=== PATIENT | male | born 1960 | race Caucasian/White ===

== ENCOUNTER 2020-07-30 12:00 | Outpatient (REF) | payer SELFPAY ==
[2020-07-30 13:04] LABS: Cholesterol 232 mg/dL
[2020-07-30 13:24] LABS: SARS COV2 IgG Negative (Negative)
== END 2020-07-30 12:01 | disposition home or self-care (01) ==
LOC: HO.LNC 12:00
PROVIDERS: Visit Provider Pathology Anatomic Pathology & Clinical Pathology
DX: Z20.828 Contact with and (suspected) exposure to other viral communicable diseases (principal)
CPT/HCPCS: 82465; 86769

== ENCOUNTER 2021-08-21 07:31 | Day surgery (SDC) | payer BC, SELFPAY ==
[2021-08-21 07:45] VITALS: BMI 28.1
[2021-08-21 08:03] VITALS: BP 146/94; PULSE 62; RESP 16; TEMP 36.6; O2SAT 98
--- NOTE | 2021-08-21 08:07 | P.CONAN_ITS ---
[facility] Past Medical History Medical History Hiatal hernia Hyperlipemia Surgical History Surgical History History of esophagogastroduodenoscopy (EGD) Hx of esophagogastroduodenoscopy S/P tonsillectomy History of Problems with Anesthesia: No Social History Social History Patient Tobacco Use Status: Never used Tobacco Use of substances other than those prescribed or required for medical reasons: No Are you DNR?: No Advance Directives: No Advance Directives Information Provided: Yes Meds Allergies Allergy/AdvReac Type Severity Reaction Status Date / Time No Known Allergies Allergy Verified 08/21/21 07:43 Home Medications Medication Instructions Recorded Confirmed Last Taken Type atorvastatin 40 mg tablet 1 tab PO BEDTIME 08/20/21 08/20/21 Unknown History doxepin 10 mg/mL oral concentrate mg PO 08/20/21 Unknown History omeprazole 20 mg capsule,delayed 1 cap PO DAILY 08/20/21 08/20/21 Unknown History release ascorbic acid (vitamin C) 1,000 mg 1,000 mg PO DAILY 08/21/21 08/21/21 Unknown History tablet (Vitamin C) iron Q OTHER DAY 08/21/21 Unknown History multivitamin 1 tab PO DAILY 08/21/21 08/21/21 Unknown History Exam Exam Date and Time: August 21, 2021 0807 Height,Weight and Vital Signs: Height 5 ft 7 in Weight 81.647 kg Airway Mallampati Class: III TM Dist: >3cm Neck ROM: Full Loose/Missing/Broken Teeth: No Heart: RRR Lungs: CTA Assessment and Plan Assessment Anesthesia Assessment: Anesthesia Plan Discussed and Chart Reviewed Final Anesthetic Review History of Problems with Anesthesia: No NPO: Yes ASA Class: II Final Preanesthetic Review: Meds/Allgs Chart Reviewed, Consent Obtained/Reviewed and Anes Risks/Benef Reviewed Patient Risk: Low Procedure Risk: Intermediate Anesthetic Plan Anesthetic Plan: MAC: Disposition: Standard PACU
[2021-08-21 08:11] LABS: INTERNATIONAL NORM RATIO 1.1 (0.9-1.1); Prothrombin Time 12.5 SEC (9.9-13.0)
[2021-08-21 08:22] LABS: COVID-19 Test Negative (Negative); IDNOW Serial# 55D5AD1C
[2021-08-21] MEDS: Lactated Ringers 1,000 ML 50 ML IVCONT (08:50)
[2021-08-21 09:18] VITALS: BP 111/72; PULSE 62; RESP 18; TEMP 36.6; O2SAT 100
--- NOTE | 2021-08-21 09:22 | PM.OP ---
Brief Operative Note Date of Service: 08/21/21 Pre-op diagnosis: Dysphagia Post-op diagnosis: other (Hiatal hernia, Nonobstructing ring at EG Junction) Procedure: EGD with Balloon Dilation and biopsy Surgeon: Kenyon Cannon Anesthesia: MAC Was an Tank Car Reconditioner used for this Procedure?: No Estimated blood loss (mL): 2.0 Pathology: other (A. Esophagus at 25cm) Condition: stable Disposition: PACU
[2021-08-21 09:33] VITALS: BP 126/76; PULSE 70; RESP 18; TEMP 36.6; O2SAT 98
--- NOTE | 2021-08-21 10:20 | OP_ITS ---
SURGEON: Kenyon Cannon MD INDICATIONS: The patient presents for evaluation of previous history of eosinophilic esophagitis and recurrent dysphagia. Full consent obtained from him for this, including risks of bleeding and perforation. PREOPERATIVE DIAGNOSIS: POSTOPERATIVE DIAGNOSIS: PROCEDURE PERFORMED: Esophagogastroduodenoscopy with balloon dilation of gastroesophageal junction and biopsies. ESTIMATED BLOOD LOSS: COMPLICATIONS: ANESTHESIA: Monitored anesthesia care. ASSISTANTS: SPECIMENS: PREOPERATIVE DIAGNOSES: Dysphagia and history of eosinophilic esophagitis. POSTOPERATIVE DIAGNOSES: Dysphagia and history of eosinophilic esophagitis, hiatal hernia. DESCRIPTION OF PROCEDURE: The patient was placed in the left lateral decubitus position. The Olympus video gastroscope was passed in the posterior oropharynx and upper esophagus under direct vision. The scope was passed slowly to the distal esophagus. The gastroesophageal junction appeared at 38 cm. With insufflation of air, there appeared to be possibly a subtle nonobstructing esophageal ring just at the esophagogastric junction. This was clearly not obstructing. There was no associated esophagitis. There was no evidence of any Sosa's esophagus. Scope was advanced to the pylorus and the duodenum was cannulated to the descending portion. The duodenum including the bulb appeared normal without mass or ulceration. The scope was withdrawn back to the stomach. The gastric antrum and body appeared normal with good peristalsis. The scope was retroflexed visualizing the proximal stomach carefully which appeared normal, without any sign of mass or ulceration. The scope was straightened and withdrawn back to the esophagus. Given the symptomatology, I did use a [employer] incremental balloon to dilate the gastroesophageal junction from 18 mm to 19 mm to 20 mm at the recommended pressure for between 30 and 60 seconds each. Post dilation, there did not appear to be any heme noted nor any disruption of the minimal esophageal ring. The scope was withdrawn through the remainder of the esophagus. The proximal esophagus was carefully inspected with insufflation of air and I did not appreciate any sign of esophageal rings as I had visualized previously. I did obtain biopsies at 25 cm. The scope was withdrawn from the patient. He tolerated the procedure well and returned to the recovery area in stable condition. IMPRESSION: 1. Small hiatal hernia. 2. Minimal nonobstructing distal esophageal ring, status post balloon dilation. 3. Rule out underlying eosinophilic esophagitis. PLAN: The results of biopsies will be checked. The patient was recently started on omeprazole and has had complete resolution of his previous dysphagia. Although there is no evidence of esophagitis, he may very well be having esophageal spasm in relation to acid reflux. I have advised him to continue the omeprazole daily for another several weeks and then he can use it perhaps every other day and then see me in followup in several months. Even if there is evidence of eosinophilic esophagitis on the biopsies, I would not recommend treating that specifically with something such as budesonide as long as he remains asymptomatic on omeprazole. This has been discussed with his . MD ÓSCAR Echevarria/VINI / [id number] MTDD
== END 2021-08-21 10:22 | disposition home or self-care (01) ==
PROVIDERS: Anesthesiology; Visit Provider Internal Medicine
PROC: (CPT 43249; principal; 2021-08-21 08:40)
DX: R13.19 Other dysphagia (principal); K22.2 Esophageal obstruction; Z87.19 Personal history of other diseases of the digestive system; K44.9 Diaphragmatic hernia without obstruction or gangrene; E78.5 Hyperlipidemia, unspecified; Z79.899 Other long term (current) drug therapy; Z20.822 Contact with and (suspected) exposure to COVID-19
CPT/HCPCS: 43249; 43239; 36415; 85610; 87635; 88305; C1726

== ENCOUNTER 2022-02-26 06:07 | Outpatient (REF) | payer BC, SELFPAY ==
--- NOTE | ~2022-02-26 | XR_ITS ---
EXAMINATION: XR AP STANDING KNEE BILATERAL XR KNEE, LEFT XR KNEE, RIGHT CLINICAL INFORMATION: Bilateral knee pain. COMPARISON: None. TECHNIQUE: AP standing view of bilateral knees. [place] and lateral views of each knee. FINDINGS: Alignment is anatomic. Mild medial tibiofemoral cartilage space loss. Mild patellofemoral cartilage space loss. Tricompartmental osteophytes are present. Bilateral quadriceps tendon enthesophyte. There is mild left prepatellar soft tissue swelling. No significant joint effusion. XR/XR knee RT 2V IMPRESSION: Mild osteoarthritis of bilateral knees.
--- NOTE | ~2022-02-26 | XR_ITS ---
EXAMINATION: XR AP STANDING KNEE BILATERAL XR KNEE, LEFT XR KNEE, RIGHT CLINICAL INFORMATION: Bilateral knee pain. COMPARISON: None. TECHNIQUE: AP standing view of bilateral knees. [place] and lateral views of each knee. FINDINGS: Alignment is anatomic. Mild medial tibiofemoral cartilage space loss. Mild patellofemoral cartilage space loss. Tricompartmental osteophytes are present. Bilateral quadriceps tendon enthesophyte. There is mild left prepatellar soft tissue swelling. No significant joint effusion. XR/XR knee standing BI IMPRESSION: Mild osteoarthritis of bilateral knees.
--- NOTE | ~2022-02-26 | XR_ITS ---
EXAMINATION: XR AP STANDING KNEE BILATERAL XR KNEE, LEFT XR KNEE, RIGHT CLINICAL INFORMATION: Bilateral knee pain. COMPARISON: None. TECHNIQUE: AP standing view of bilateral knees. [place] and lateral views of each knee. FINDINGS: Alignment is anatomic. Mild medial tibiofemoral cartilage space loss. Mild patellofemoral cartilage space loss. Tricompartmental osteophytes are present. Bilateral quadriceps tendon enthesophyte. There is mild left prepatellar soft tissue swelling. No significant joint effusion. XR/XR knee LT 2V IMPRESSION: Mild osteoarthritis of bilateral knees.
== END 2022-02-26 06:08 | disposition home or self-care (01) ==
LOC: HO.HOSX 06:07
PROVIDERS: Visit Provider Physician Assistant
DX: M17.12 Unilateral primary osteoarthritis, left knee (principal)
CPT/HCPCS: 73560; 73565

== ENCOUNTER 2022-03-18 18:38 | Outpatient (REF) | payer BC, SELFPAY ==
--- NOTE | ~2022-03-18 | MR_ITS ---
EXAMINATION: MR KNEE WITHOUT CONTRAST, LEFT CLINICAL INFORMATION: Medial and lateral left knee pain. Posterior tightness. Osteoarthritis. COMPARISON: Left knee radiographs dated 02/26/2022. TECHNIQUE: MRI of the knee without contrast was performed using routine sequences on a high-field scanner. FINDINGS: MENISCI: Medial Meniscus: Inner margin radial tear of the posterior body/posterior horn junction with oblique components extending to the posterior horn which contacts both the femoral and tibial articular surface. Mild adjacent soft tissue edema. Lateral Meniscus: Minimal inner margin fraying of the meniscal body. LIGAMENTS: Cruciate: Intact Collateral: Intact EXTENSOR MECHANISM: Superior patellar enthesophytes. Intact quadriceps and patellar tendons. ARTICULAR CARTILAGE/BONE: Patellofemoral Compartment: Articular cartilage thinning with full-thickness fissuring at the lateral patellar facet. Trochlear articular cartilage signal heterogeneity and surface vascularity with areas of full thickness loss of the central and lateral trochlea where there is mild simple cystic change. Small marginal osteophytes. Medial Compartment: Intact articular cartilage. Lateral Compartment: Mild lateral tibial plateau articular cartilage signal heterogeneity within the marginal osteophytes. JOINT FLUID AND BURSAE: Trace joint effusion and small Smith's cyst. MR/MR knee LT wo con IMPRESSION: 1. Complex tearing of the medial meniscus posterior body and posterior horn with inner margin radial as well as oblique femoral and tibial articular surface components. Mild adjacent soft tissue edema. 2. Minimal inner margin fraying of the lateral meniscal body. 3. Moderate patellofemoral as well as mild lateral compartment osteoarthritis. Trace joint effusion and small Smith's cyst.
== END 2022-03-18 18:39 | disposition home or self-care (01) ==
LOC: HO.MRI 18:38
PROVIDERS: Visit Provider Physician Assistant
DX: M17.12 Unilateral primary osteoarthritis, left knee (principal)
CPT/HCPCS: 73721

== ENCOUNTER 2022-05-07 09:21 | Day surgery (SDC) | payer BC, SELFPAY ==
[2022-05-01 13:56] VITALS: BMI 28.1
[2022-05-07] VITALS (20 sets, daily range): BP systolic 81–132; BP diastolic 46–87; PULSE 47–61; RESP 14–20; TEMP 36.1–36.4; O2SAT 94–100
[2022-05-07] MEDS: Lactated Ringers 1,000 ML 50 ML IVCONT (09:52)
--- NOTE | 2022-05-07 10:31 | HO.ANESPROP2 ---
HPI - Anesthesia Eval Consult details Narrative: 62 M for Left knee Meniscus repair PMFSH Active Problems Active Problems: All Active Problems (Updated 02/26/22 @ 16:18 by Baldev Rosas PA-C) Internal derangement of left knee (Acute) Patellofemoral arthritis of right knee (Acute) Patellofemoral arthritis of left knee (Acute) Past Medical History Medical History Hiatal hernia Hyperlipemia Functional capacity: independent ambulation Family History Family history of problems with anesthesia: No Surgical History Surgical History History of esophagogastroduodenoscopy (EGD) Hx of esophagogastroduodenoscopy S/P tonsillectomy History of Problems with Anesthesia: No Social History Social History Alcohol intake: current Alcohol intake frequency: holidays/special occasions only Patient Tobacco Use Status: Never used Tobacco Are you DNR?: No Advance Directives: No Advance Directives Information Provided: Yes Recently lost weight without trying: No Nutrition Risks: No Nutritional Risk Poor oral hygiene: No Current occupational status: employed Current occupation: [employer] Allergies Allergy/AdvReac Type Severity Reaction Status Date / Time No Known Allergies Allergy Verified 04/11/22 10:30 Active Medications: Current Medications Lactated Ringer's (Lr) 1,000 mls @ 50 mls/hr IVCONT .Q20H DORINDA Last Admin: 05/07/22 09:52 Dose: 50 mls/hr Home Medications Medication Instructions Recorded Confirmed Last Taken Type atorvastatin 40 mg tablet 1 tab PO BEDTIME 08/20/21 05/07/22 05/04/22 History doxepin 10 mg/mL oral concentrate mg PO 08/20/21 05/04/22 History omeprazole 20 mg capsule,delayed 1 cap PO DAILY 08/20/21 05/07/22 05/04/22 History release ascorbic acid (vitamin C) 1,000 mg 1,000 mg PO DAILY 08/21/21 05/07/22 05/06/22 History tablet (Vitamin C) iron See Rx Instructions .Route .COMPLEX 08/21/21 05/07/2205/06/22 History multivitamin 1 tab PO DAILY 08/21/21 05/07/22 05/04/22 History Exam Exam Date and Time: May 07, 2022 1031 Height,Weight and Vital Signs: Height 5 ft 7 in Weight 81.647 kg Last Vital Signs Temp 97.3 F 05/07/22 09:26 Pulse 58 05/07/22 09:26 Resp 18 05/07/22 09:26 BP 132/87 05/07/22 09:26 Pulse Ox 98 05/07/22 09:26 O2 Del Method 05/07/22 09:26 Airway Mallampati Class: III TM Dist: >3cm Neck ROM: Full Loose/Missing/Broken Teeth: Yes (Multiple chipped teeth , fillings) Heart: S1,S2 Lungs: b/l breath sounds Assessment and Plan Assessment Anesthesia Assessment: Anesthesia Plan Discussed and Chart Reviewed Final Anesthetic Review Family History of Problems with Anesthesia: No History of Problems with Anesthesia: No NPO: Yes ASA Class: II Final Preanesthetic Review: Meds/Allgs Chart Reviewed, Consent Obtained/Reviewed and Anes Risks/Benef Reviewed Patient Risk: Intermediate Procedure Risk: Intermediate Anesthetic Plan Anesthetic Plan: GA Disposition: Standard PACU
--- NOTE | 2022-05-07 12:24 | P.BOP_ITS ---
Brief Operative Note Date of Service: 05/07/22 Pre-op diagnosis: left knee internal derangement Post-op diagnosis: other (1) MMT 2) PF OA 3) Medial femroal condyle articular cartilage damage) Procedure: Partial medial meniscectomy Chondroplasty Surgeon: Jorge Bolden MD Anesthesia: GETA and local Was an Pressure Test Operator used for this Procedure?: No Estimated blood loss (mL): 5 Tourniquet time (min): 27 IV fluids (mL): 800 Pathology: none sent Condition: stable Disposition: PACU
--- NOTE | 2022-05-07 12:27 | P.OP_ITS ---
Operative Note Operative Note Date of Service: 05/07/22 Narrative: Date of Service: 05/07/22 Pre-op diagnosis: left knee internal derangement Post-op diagnosis: other (1) MMT? 2) PF OA? 3) Medial femroal condyle articular cartilage damage) Procedure: Partial medial meniscectomy Chondroplasty Surgeon: Jorge Bolden MD Anesthesia: GETA and local Was an Design Painter used for this Procedure?: No Estimated blood loss (mL): 5 Tourniquet time (min): 27 IV fluids (mL): 800 Pathology: none sent Condition: stable Disposition: PACU Procedure in detail: Patient was brought to the operating room placed supine on the arthroscopic table and prepped and draped in standard sterile fashion. A time-out was called to identify proper site proper procedure proper surgeon and IV antibiotics per weight were administered. I began by exsanguinating the limb and insufflating tourniquet to 300 mm Hg. Then made a standard anterolateral stab incision. The knee was insufflated with water and 30 degree arthroscope was placed. There was grade 3 fibrillations of the cetral fect of the patella and a large anterior osteophyte. The lateral trochlea was devoid of cartilage. The gutters were clean. I descended into the medial compartment where I made my medial portal under direct visualization. There was obvious of radial tear of the body and posterior horn of the medial meniscus. The root was intact. I removed the unstable meniscal flaps with a biter and a shaver until the meniscus was stable. Approximately 30% of the meniscal volume was removed. There were grade 1 changes of the MFC and one posterior area of full thickness cartilage loss measuring 5mm x 5 mm. This was adjacent to the meniscal tear and presumably a result of the initial injury? The loose cartialge flaps were debrided with a shaver. I then examined the notch and the ACL/PCL was intact . I debrided loose tissue over th e lateral femoral trochlea and condyle and this allowed me to enter the lateral compartment. There was scatttered G3 changed of the medial portion of the lateral plateau and 1/2 changes of the majoriy of the lateral plateau. The meniscus was intact and without need for intervention. I took my final picture. I then removed all instrumentation and closed the portals with skin glue. 25 mL of 2% Marcaine with epinephrine was injected into the joint and the surrounding soft tissues. Patient was then placed in sterile dressing extubated brought recovery room stable condition. There were no known complications.
[2022-05-07] MEDS: oxyCODONE HCl Immed Release 5 MG TABLET PO (13:17)
[2022-05-07] MEDS: Acetaminophen 325 MG TABLET 650 MG PO (13:17)
[2022-05-07] MEDS: HYDROmorphone HCl 0.5 MG/0.5 ML SYRINGE 0.25 MG IVPUSH (13:19)
== END 2022-05-07 16:36 | disposition home or self-care (01) ==
PROVIDERS: Visit Provider Orthopaedic Surgery
PROC: (CPT 29870; principal; 2022-05-07 11:40)
DX: S83.232A Complex tear of medial meniscus, current injury, left knee, initial encounter (principal); M23.92 Unspecified internal derangement of left knee; M17.12 Unilateral primary osteoarthritis, left knee; M24.10 Other articular cartilage disorders, unspecified site; M25.462 Effusion, left knee; M71.22 Synovial cyst of popliteal space [Baker], left knee; X58.XXXA Exposure to other specified factors, initial encounter; Y93.01 Activity, walking, marching and hiking; Y92.9 Unspecified place or not applicable; Y99.8 Other external cause status; R26.2 Difficulty in walking, not elsewhere classified; E78.5 Hyperlipidemia, unspecified; K44.9 Diaphragmatic hernia without obstruction or gangrene; Z79.899 Other long term (current) drug therapy
CPT/HCPCS: 29881; A4649; J0171; J0690; J1100; J1170; J2250; J2405; J2795; J3010

== ENCOUNTER 2022-05-09 14:13 | Outpatient (REF) | payer BC, SELFPAY ==
--- NOTE | ~2022-05-09 | US_ITS ---
EXAMINATION: US VENOUS ULTRASOUND WITH DOPPLER LOWER EXTREMITY, LEFT CLINICAL INFORMATION: Pain and swelling. COMPARISON: None TECHNIQUE: Ultrasound of the deep veins is performed from the hip to the calf with compression sonography and color and pulse Doppler assessment. Spectral analysis with color-flow imaging is performed. FINDINGS: The common femoral vein is compressible and exhibits a normal phasic waveform; this suggests that the iliac veins are widely patent above. Within the proximal thigh, the visualized profunda femoris vein is normal. The examined greater saphenous vein and saphenofemoral junction are normal. Superficial femoral vein is patent in the proximal, mid and distal thigh. Popliteal vein is normal to the level of the trifurcation. Within the calf, the posterior tibial vein has a normal appearance. Anterior and posterior branches of peroneal vein are identified. There is lack of compressibility of an anterior peroneal vein. No evidence of Smith's cyst. US/US venous duplex LE LT IMPRESSION: * There is venous thrombosis involving a peroneal vein of the calf. * No evidence of deep vein thrombosis in the femoral or popliteal veins. The critical test result was discussed with Judith Brandon, the vp medical, at 3:51 PM on 05/09/2022 and it was ascertained that the content and the importance of the findings was understood at the time of the direct communication.
== END 2022-05-09 14:14 | disposition home or self-care (01) ==
LOC: HO.US 14:13
PROVIDERS: Visit Provider Physician Assistant
DX: R60.9 Edema, unspecified (principal)
CPT/HCPCS: 93971

== ENCOUNTER 2022-05-09 15:09 | Emergency (ER) | payer BC, SELFPAY ==
[2022-05-09 16:30] VITALS: BP 143/90; PULSE 67; RESP 18; TEMP 36.1; O2SAT 96; BMI 27.3
[2022-05-09 16:53] LABS: MANUAL DIFF FLAG NO
[2022-05-09 16:56] LABS: Basophils Percent Auto 0.2 % (0-2); Eosinophils Absolute Auto 0.1 X10*3/uL (0.0-0.4); Eosinophils Percent Auto 1.2 % (0-4); Hemoglobin 14.6 g/dl (14.0-18.0); Imm Gran Abs Auto 0.02 X10*3/uL (0.00-0.03); Imm Gran Pct Auto 0.2 % (0.0-0.4); Lymphocytes Absolute Auto 1.4 X10*3/uL (1.2-4.9); Lymphocytes Percent Auto 16.9 % (20-40); Mean Corpuscular HGB Conc 32.4 g/dl (31.0-36.0); Mean Corpuscular Hemoglobin 29.3 pg (27.0-33.0); Mean Corpuscular Volume 90.2 fL (80.0-98.0); Mean Platelet Volume 9.5 fL (9.4-12.4); Monocytes Absolute Auto 0.6 X10*3/uL (0.1-1.2); Monocytes Percent Auto 7.8 % (2-11); Neutrophils Absolute Auto 5.9 x10*3/uL (2.0-8.3); Neutrophils Percent Auto 73.7 % (45-73); Platelet Count 226 X10*3/uL (160-400); Red Blood Count 4.99 X10*6/uL (4.60-5.80); Red Cell Distribution Width 13.4 % (11.0-16.0); White Blood Count 8.1 X10*3/uL (4.8-10.8)
[2022-05-09 17:07] LABS: D Dimer High Sensitivity 2975 NG/ML
[2022-05-09 17:08] LABS: Partial Thromboplastin Time 29.4 SEC (26.0-36.4)
[2022-05-09 17:10] LABS: Anion Gap 16 (12-20); Blood Urea Nitrogen 11 mg/dL (9-16); Calcium 9.4 mg/dL (8.4-10.2); Carbon Dioxide 30 mmol/L (22-29); Chloride 104 mmol/L (96-108); Creatinine Clr Calc Pharmacy 80.1; Estimated Glomerular Filt Rate > 60; Glucose Random 94 mg/dL (60-115); Potassium 4.5 mmol/L (3.3-5.1); Sodium 145 mmol/L (135-145)
--- NOTE | 2022-05-09 20:17 | ED_ITS ---
HPI - Extremity Problem General Chief complaint: Extremity Problem Stated complaint: + blood clot Time Seen by Provider: 05/09/22 20:16 Source: patient Mode of arrival: ambulatory Limitations: no limitations History of Present Illness HPI Narrative: Patient status post left knee meniscal surgery done 3 days ago since last night noticed fullness and pain and left calf area had venous Doppler done as outpatient which showed left peroneal vein thrombosis patient has no history of blood clots in the past denies any shortness of breath Related Data Home Medications Medication Instructions Recorded Confirmed atorvastatin 40 mg tablet 1 tab PO BEDTIME 08/20/21 05/07/22 doxepin 10 mg/mL oral concentrate mg PO 08/20/21 omeprazole 20 mg capsule,delayed 1 cap PO DAILY 08/20/21 05/07/22 release ascorbic acid (vitamin C) 1,000 mg 1,000 mg PO DAILY 08/21/21 05/07/22 tablet (Vitamin C) iron See Rx Instructions .Route .COMPLEX 08/21/21 05/07/22 multivitamin 1 tab PO DAILY 08/21/21 05/07/22 Previous Rx's Medication Instructions Recorded hydrocodone 5 mg-acetaminophen 325 1 tab PO Q8H PRN pain 7 days #21 05/08/22 mg tablet tabs apixaban 5 mg (74 tabs) tablets in 5 mg PO BID #74 ea 05/09/22 a dose pack (Eliquis DVT-PE Treat 30D Start) Allergies Allergy/AdvReac Type Severity Reaction Status Date / Time No Known Allergies Allergy Verified 04/11/22 10:30 Review of Systems Review of Systems: Yes all other systems are reviewed and are negative PMFSH Past Medical History Medical History Hiatal hernia Hyperlipemia Surgical History History of esophagogastroduodenoscopy (EGD) Hx of esophagogastroduodenoscopy S/P tonsillectomy Social History Social History Alcohol intake: current Alcohol intake frequency: holidays/special occasions only Patient Tobacco Use Status: Never used Tobacco Advance Directives: No Advance Directives Information Provided: No Current occupational status: employed Current occupation: [employer] Physical Exam Vital Signs: Vital Signs: Last Vital Signs Temp 97.0 F 05/09/22 16:30 Pulse 67 05/09/22 16:30 Resp 18 05/09/22 16:30 BP 143/90 H 05/09/22 16:30 Pulse Ox 96 05/09/22 16:30 O2 Del Method 05/09/22 16:30 BMI result Body Mass Index 27.3 Appearance: Alert. Oriented X3. No acute distress. ENT: Pharynx normal. Oral Mucosa moist Neck: Normal inspection. Neck supple. CVS: Normal heart rate and rhythm. Pulses normal. Respiratory: No respiratory distress. Equal air entry bilateral, no wheezing/rales/rhonchi Abdomen: Soft and nontender. Bowel sounds are present, no mass palpable, Skin: Skin warm and dry. Normal skin color. Normal skin turgor. Extremities: No lower extremity edema. Mild left calf tenderness Zana sign ne gative Neuro: Oriented X 3. No motor deficit. MDM - Extremity (Nontraumatic) Lab Data Attestation: I reviewed the patient's lab results. Result diagrams: 05/09/22 16:49 05/09/22 16:49 Labs: Lab Results 05/09/22 05/09/22 05/09/22 Range/Units 16:49 16:49 16:49 WBC 8.1 (4.8-10.8) X10*3/uL RBC 4.99 (4.60-5.80) X10*6/uL Hgb 14.6 (14.0-18.0) g/dl Hct 45.0 (42.0-52.0) % MCV 90.2 (80.0-98.0) fL MCH 29.3 (27.0-33.0) pg MCHC 32.4 (31.0-36.0) g/dl RDW 13.4 (11.0-16.0) % Plt Count 226 (160-400) X10*3/uL MPV 9.5 (9.4-12.4) fL Immature Gran % (Auto) 0.2 (0.0-0.4) % Neut % (Auto) 73.7 H (45-73) % Lymph % (Auto) 16.9 L (20-40) % Gilchrist % (Auto) 7.8 (2-11) % Eos % (Auto) 1.2 (0-4) % Baso % (Auto) 0.2 (0-2) % Lymph # (Auto) 1.4 (1.2-4.9) X10*3/uL Gilchrist # (Auto) 0.6 (0.1-1.2) X10*3/uL Eos # (Auto) 0.1 (0.0-0.4) X10*3/uL Baso # (Auto) 0.0 (0.0-0.2) X10*3/uL Abs Immat Gran (auto) 0.02 (0.00-0.03) X10*3/uL Absolute Neuts (auto) 5.9 (2.0-8.3) x10*3/uL Absolute Nucleated RBC 0.000 (0.0-0.012) X10*3/uL Nucleated RBC % (auto) 0.0 (0.0-0.2) /100WBC APTT 29.4 (26.0-36.4) SEC D-Dimer High Sensitivty 2975 NG/ML Sodium 145 (135-145) mmol/L Potassium 4.5 (3.3-5.1) mmol/L Chloride 104 (96-108) mmol/L Carbon Dioxide 30 H (22-29) mmol/L Anion Gap 16 (12-20) BUN 11 (9-16) mg/dL Creatinine 0.99 (0.5-1.4) mg/dL Estim Creat Clear Calc 80.1 Estimated GFR > 60 Random Glucose 94 (60-115) mg/dL Calcium 9.4 (8.4-10.2) mg/dL Imaging Data Venous US: Attestation: I personally reviewed and interpreted this imaging study as follows: Radiologist's impression: US/US venous duplex LE LT IMPRESSION:? *? There is venous thrombosis involving a peroneal vein of the calf. *? No evidence of deep vein thrombosis in the femoral or popliteal veins. ? ? The critical test result was discussed with Judith Brandon, the medical claims analyst, at 3:51 PM on 05/09/2022 and it was ascertained that the content and the importance of the findings was understood at the time of the direct communication. Dictated By: Vahid Pemberton MD Signed By: <Electronically signed by Vahid Pemberton MD in OV> Discharge Plan Discharge Clinical Impression: Deep vein thrombosis of lower extremity Patient Disposition: Home, Self-Care Instructions: Deep Vein Thrombosis (ED) Additional Instructions: Take Eliquis as advised 10 mg twice daily for 7 days then 5 mg twice daily likely for 3 months Follow-up with PCP Report to the ER if increased shortness of breath Prescriptions: New Eliquis DVT-PE Treat 30D Start 5 mg (74 tabs) tablets,dose pack 5 mg PO BID Qty: 74 0RF No Action hydrocodone-acetaminophen 5-325 mg tablet 1 tab PO Q8H PRN (Reason: pain) 7 Days Qty: 21 0RF Rx Instructions: Partial Fill upon patient request. atorvastatin 40 mg tablet 1 tab PO BEDTIME doxepin 10 mg/mL concentrate PO omeprazole 20 mg capsule,delayed release(DR/EC) 1 cap PO DAILY multivitamin Tablet 1 tab PO DAILY ascorbic acid (vitamin C) [Vitamin C] 1,000 mg Tablet 1,000 mg PO DAILY iron See Rx Instructions .ROUTE .COMPLEX Rx Instructions: 1 PILL
[2022-05-09] MEDS: Apixaban 5 MG TABLET 10 MG PO (20:40)
== END 2022-05-09 20:49 | disposition home or self-care (01) ==
PROVIDERS: Emergency Provider Internal Medicine; PCP Physician Assistant Medical
DX: I82.452 Acute embolism and thrombosis of left peroneal vein (principal); M79.662 Pain in left lower leg; E78.5 Hyperlipidemia, unspecified; Z79.02 Long term (current) use of antithrombotics/antiplatelets; Z79.899 Other long term (current) drug therapy
CPT/HCPCS: 36415; 80048; 85025; 85379; 85730; 99283

== ENCOUNTER 2022-06-12 09:00 | Outpatient (RCR) | payer BC, SELFPAY ==
--- NOTE | 2022-05-13 15:31 | MHC.PT.EP ---
[facility] [place] Office [place] Office [place] Office [address] Claus Douglas [address] [phone] F: [phone] F: [phone] F: [phone] F: [phone] Physical Therapy Plan of Care Date of Evaluation: Date of Surgery: 05/07/22 Diagnosis: PARTIAL MEDIAL MENISCECTOMY AND CHONDROPLASTY (KP) Assessment: RAÚL IS A PLEASANT 62 YO GENTLEMAN WHO UNDERWENT KNEE A.S. ON 05/07/[address] TOLENTINO. HE IS SEEN TODAY FOR HIS ORTHOPEDIC POST-OP VISIT [facility] PT FRANCES. 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 HAS STAIRS AT HOME AND HAS BEEN PERFORMING NON-RECIPROCAL GAIT AT THIS TIME. PRESENTS POD #5 FOR ORTHOPEDIC FOLLOW UP AND PT EVALUATION. UPON EXAM HE DEMONSTRATES THE EXPECTED IMPAIRMENTS OF DECREASED ROM, ALTERED POSTURE AND POSITIONING, ALTERED GAIT AND BALANCE, AND MILD PAIN AND EDEMA. FUNCTIONAL LIMITATIONS INCLUDE DECREASED ABILITY TO PERFORM WALKING, RUNNING, JUMPING AND SQUATTING, INABILITY TO DRIVE AND PERFORM WORK TASKS, DECREASED PARTICIPATION IN COMMUNITY AND RECREATIONAL ACTIVITIES AND DISRUPTED SLEEP. THE Pt IS A GOOD CANDIDATE FOR SKILLED PT DUE TO AGE, POTENTIAL REMEDIATION OF IMPAIRMENTS, TYPICAL DISEASE/CONDITION PROGRESSION AND PROGNOSIS, COMORBIDITIES, AND MOTIVATION. PT WOULD BENEFIT FROM TAILORED PROGRAM OF THERAPEUTIC ACTIVITIES, FUNCTIONAL TRAINING, GAIT TRAINING, POSTURAL EDUCATION, NEUROMUSCULAR RE-EDUCATION, AND MODALITIES NEEDED. 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 Manual therapy to restore motion and function. Therapeutic exercise to improve strength and flexibility. Neuromuscular re-education for posture and balance. Therapeutic activities to return to functional activities of daily living. Electronically signed by: JAHAIRA BRADY PT, DPT Please sign and return to therapist. Thank you for your referral.
--- NOTE | 2022-07-16 12:07 | MHC.PT.DC ---
[facility] [place] Office [place] Office [place] Office [address] Claus Douglas [address] [facility] [phone] F: [phone] F: [phone] F: [phone] F: [phone] Physical Therapy Discharge Report Diagnosis: PARTIAL MEDIAL MENISCECTOMY AND CHONDROPLASTY (KP) Date of Surgery: 05/07/22 Date of Evaluation: 05/12/22 Date of Discharge: 06/16/22 Treatments to Date: 9 Cancellations to Date: 0 No Shows to Date: 0 Discharge Status: Discharge Summary: had been progressing well with PT but then did not schedule further visits. Status is unknown but he does have a comprehensive program to continue with at home. Electronically signed by: Aaliyah Jacobson PT, DPT Please sign and return to therapist. Thank you for your referral.
== END 2022-07-16 12:07 | disposition home or self-care (01) ==
LOC: HO.PT 09:00
PROVIDERS: Visit Provider Physician Assistant
DX: M23.92 Unspecified internal derangement of left knee (principal)
CPT/HCPCS: 97110; 97161; 97530

== ENCOUNTER 2023-07-31 10:07 | Outpatient (AMB) | payer BC, SELFPAY ==
[2023-07-31 10:26] VITALS: BMI 27.4
--- NOTE | 2023-07-31 10:26 | MHC.OFFVIS ---
Intake Vital Signs 07/31/23 10:26 Height 5 ft 7 in Weight 175 lb BMI 27.4 Intake Visit Reasons: OV - Right knee pain Intake Note: Chico is a 63 year old male who presents today for a follow up of his right knee OA. Patient reports pain with daily activity, worse with using stair over the last two months. Patient reports that the left knee has become stiff again over the last two months now , Hx of Left knee 05/07/23 Allergies No Known Allergies Allergy (Verified 05/12/22 09:08) HPI OV - Right knee pain HPI Details Chico is a 63 year old man who presents with new complaints of right knee pain. He has pain with daily activity, worse with using stairs, and says his pain has been present & worsening over the last ~2 months. He denies any prior treatment. He also complains of increased stiffness in his left knee over the last ~2 months. He is ~15 months S/P left knee . He describes most of his pain is with standing from a seated position and stair descension. [facility] Medical History Hyperlipemia Hiatal hernia Surgical History (Updated 07/31/23 @ 10:30 by Aaliyah Carey [facility]) H/O arthroscopy of left knee S/P tonsillectomy History of esophagogastroduodenoscopy (EGD) Hx of esophagogastroduodenoscopy Social History Alcohol intake: current Alcohol intake frequency: holidays/special occasions only Patient Tobacco Use Status: Never used Tobacco Current occupational status: employed Current occupation: [employer] , [place] Review of Systems Const All systems reviewed & are unremarkable except as noted in HPI and below Physical Exam Vital Signs: BMI result Body Mass Index 27.4 Const General: no acute distress, alert and awake Orientation/consciousness: patient oriented x3 HEENT Head: Yes normocephalic and Yes atraumatic Eyes EOM: EOMs intact bilaterally Resp Effort & Inspection: normal respiratory effort and able to speak in complete sentences Cardio Jugular venous distension: no JVD Skin General skin exam: turgor normal Rashes: no rashes Neuro General: patient oriented x3 Extrem Other: no effusion 5-125 retropatellar ttp + crepitus with PF grind Psych Appearance: grossly normal Affect: normal affect Attitude: cooperative Results Reviewed Results Reviewed: I personally reviewed relevant radiographs Mild osteoarthritis of bilateral knees Assessment & Plan Assessment & Plan (1) Patellofemoral arthritis of right knee: Code(s): M17.11 - Unilateral primary osteoarthritis, right knee Plan: PF OA bilaterally Doesn't want injections at this time NSAIDs and activity modification (2) Patellofemoral arthritis of left knee: Code(s): M17.12 - Unilateral primary osteoarthritis, left knee Plan Scribed for Jorge Bolden MD by Lewis Machado, medical data analyst, on 07/31/23 at 10:45 AM, EST. Medications: New ibuprofen 600 mg PO Q8H PRN 90 tabs 2RF pain Coding Level of Care Code Est Pt Level 3 (09619) Diagnoses Patellofemoral arthritis of right knee M17.11 Patellofemoral arthritis of left knee M17.12
== END 2023-07-31 10:56 | disposition home or self-care (01) ==
PROVIDERS: PCP Physician Assistant Medical; Visit Provider Orthopaedic Surgery
DX: M17.0 Bilateral primary osteoarthritis of knee (principal)
CPT/HCPCS: 99213

== ENCOUNTER → 2023-07-31 10:07 | Outpatient (BNVA) | payer BC, SELFPAY | PROVIDERS: PCP Physician Assistant Medical; Visit Provider Orthopaedic Surgery ==